=== PATIENT | male | born 1945 | race Caucasian/White ===

== ENCOUNTER → 2021-04-08 | Outpatient (CLI) | payer MEDICARE, OTHER ==
--- NOTE | 2021-04-08 18:37 | RAD ---
EXAM: PET/CT SCAN INDICATION: Prostate cancer COMPARISON: PET/CT 02/02/2017 PET/CT SCAN TECHNIQUE: Approximately 60 minutes after the intravenous administration of 13millicuries of F-18 fluorodeoxyglucose (FDG), PET imaging of the body from the base of the top of the skull thro ugh the feet was performed. Reconstruction in all 3 planes were performed. The patient's serum glucos e level at the time of the F-18 FDG administration was 88 mg/dL. A noncontrast CT scan was obtained f or attenuation correction and anatomic localization purposes only and is not considered a diagnostic CT scan. PQRS compliance Statement One or more of the following individualized dose reduction techniques were utilized for this study: 1. Automated exposure control 2. Adjustment of the mA and/or kV according to patient size 3. Use of iterative reconstruction technique FINDINGS: HEAD AND NECK: No abnormal FDG uptake. No lymphadenopathy. CHEST: No abnormal FDG uptake. 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 No lymphadenopathy. Hear t is normal in size. The lungs are clear. No pleural effusion. ABDOMEN AND PELVIS: No abnormal FDG uptake. No lymphadenopathy. Liver, gallbladder, pancreas, spleen, adrenal glands are normal. There is a 5 cm exophytic left renal cyst. Additional subcentimeter bilateral hemorrhagic cysts. Right nephrolithiasis. Prostate gland is surgically absent. There are surgical clips along the seminal vesicles. Surgical changes of right in guinal hernia repair. There is sigmoid diverticulosis. MUSCULOSKELETAL: No abnormal FDG uptake in the bones. There is a focus of mild FDG uptake in the soft tissue of the left thigh along the vastus medialis muscle. Additional mild FDG uptake in the anterio r compartment musculature of the proximal right leg, both nonspecific. Old healed left anterior seventh rib fracture. There is a 1.5 cm sclerotic lesion in the left iliac w ing. 2.3 cm sclerotic lesion in the high right superior pubic ramus/right acetabulum. Sclerotic lesio ns in both ischial tuberosities and a small sclerotic lesion in the left pubic body. These have no FD G uptake and are overall unchanged from 2017. There is a T12 compression fracture with 30 percent vertebral body height loss, likely old. There may be minimal bowing or retropulsion of the posterior cortex without canal stenosis. There is focal kyp hosis at T11-T12. Surgical changes of posterior fusion at L4-L5. Mild anterolisthesis of L4 on L5 and L5 on S1. IMPRESSION: 1. No FDG avid metastatic disease. 2. Unchanged sclerotic lesions in the pelvis with no FDG uptake. 3. Mild focus of FDG uptake in the left vastus medialis muscle and along the proximal anterior compar tment musculature in the right leg, nonspecific. 4. T12 compression fracture with 35 percent vertebral body height loss, likely old. There may be slig ht bowing or retropulsion of posterior cortex but no obvious canal stenosis. Electronically signed by: Jessica Cerda MD (04/08/2021 6:35 PM) [id number]
== END ==
LOC: PETSC 11:24
PROVIDERS: ATTEND Internal Medicine
DX: C61 Malignant neoplasm of prostate (principal); K57.30 Diverticulosis of large intestine without perforation or abscess without bleeding; M48.54XA Collapsed vertebra, not elsewhere classified, thoracic region, initial encounter for fracture; N20.0 Calculus of kidney; N28.1 Cyst of kidney, acquired
CPT/HCPCS: 78816; A9552

== ENCOUNTER → 2021-05-09 | Outpatient (CLI) | payer MEDICARE, OTHER ==
--- NOTE | 2021-05-09 13:53 | RAD ---
EXAM: Nuclear gastric emptying scan. HISTORY: Reflux. COMPARISON: None. TECHNIQUE: Serial static images were obtained over the stomach following oral administration of 1.8 m Ci 99m-Tc sulfur colloid. FINDINGS: The stomach empties into the small bowel without evidence of reflux in the area of the esop hagus. Gastric retention percents: 1 hour 38% (normal range 34.8-91%) 2 hour 1% (normal range 2.7-60%) 3 hour 0% (normal range 0.5-28%) The estimated time for half emptying of gastric contents, i.e. 'gastric emptying time' is 55 minutes (normal is 66 +/- 22 minutes). IMPRESSION: Normal gastric emptying scan. Electronically signed by: Sushma Santana MD (05/09/2021 1:51 PM) [id number]
== END ==
LOC: NM 09:15
PROVIDERS: ATTEND Internal Medicine Gastroenterology
DX: K21.9 Gastro-esophageal reflux disease without esophagitis (principal)
CPT/HCPCS: 78264; A9541